=== PATIENT | female | born 1995 | race Caucasian/White ===

== ENCOUNTER 2017-12-11 14:42 | Emergency (ER) | payer BC ==
[2017-12-11 15:36] LABS: Urine Blood 1+ (NEG); Urine Glucose NEGATIVE (NEG); Urine Protein NEGATIVE (NEG)
[2017-12-11 15:42] LABS: Urine Bacteria >50 /HPF (<20); Urine Culture Reflex Order REFLEXED; Urine White Blood Cell Casts 0-5 /LPF (NONE SEEN)
[2017-12-11] MEDS ORDERED: NITROFURAN MACRO 100 MG CAP PO ONE (16:26)
--- NOTE | 2017-12-11 16:35 | RAD REPORT ---
EXAM DESCRIPTION: US - Renal Ultrasound-Complete - 12/11/2017 4:17 pm CLINICAL HISTORY: . Right flank pain COMPARISON: None. FINDINGS: The right kidney measures 11 cm with a normal echotexture. The left kidney measures 11 cm with a normal echotexture. Hydronephrosis is not seen. IMPRESSION: Unremarkable renal ultrasound.
--- NOTE | 2017-12-11 16:37 | ER ---
Nurse's Notes [facility] Name: Cheli Lovell Age: 22 yrs Sex: Female : 1995 Arrival Date: 12/11/2017 Time: 14:45 Bed 14 Private MD: Diagnosis: Urinary tract infection, site not specified Presentation: 12/11 14:56 Presenting complaint: Patient states: UTI for 4 days, progressed to "kidney pain". aj Transition of care: patient was not received from another setting of care. Onset of symptoms was December 07, 2017. Care prior to arrival: None. 14:56 Method Of Arrival: Ambulatory aj 14:56 Acuity: DAVID 3 aj Triage Assessment: 14:57 General: Appears in no apparent distress. comfortable, Behavior is calm, cooperative, aj appropriate for age. Pain: Complains of pain in low back area and mid back area. Neuro: Level of Consciousness is awake, alert, obeys commands, Oriented to person, place, time, situation. Respiratory: Airway is patent Respiratory effort is even, unlabored, Respiratory pattern is regular, symmetrical. Derm: Skin is intact, is healthy with good turgor, Skin is pink, warm \\T\\ dry. normal. 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 - Social history:: Smoking status: Patient/guardian denies using tobacco. Screenin:20 Abuse screen: Denies threats or abuse. Denies injuries from another. Nutritional sv screening: No deficits noted. Tuberculosis screening: No symptoms or risk factors identified. Fall Risk None identified. Assessment: 15:20 General: Appears in no apparent distress. uncomfortable, well developed, Behavior is sv calm, cooperative, appropriate for age. Pain: Complains of pain in mid back area and low back area Pain began 4 days ago. Neuro: Level of Consciousness is awake, alert, obeys commands, Oriented to person, place, time, situation, Moves all extremities. Full function Gait is steady, Speech is normal. Respiratory: Respiratory effort is even, unlabored, Respiratory pattern is regular, symmetrical. : Reports urinary frequency. Derm: Skin is pink, warm \\T\\ dry. Musculoskeletal: No signs and/or symptoms reported regarding the musculoskeletal system. 17:00 Reassessment: Patient appears in no apparent distress at this time. No changes from sv previously documented assessment. Patient and/or family updated on plan of care and expected duration. Pain level reassessed. Patient is alert, oriented x 3, equal unlabored respirations, skin warm/dry/pink. Vital Signs: 14:57 BP 143 / 94; Pulse 103; Resp 20; Temp 99.0; Pulse Ox 100% on R/A; Weight 74.84 kg; aj Height 5 ft. 2 in. (157.48 cm); 14:57 Body Mass Index 30.18 (74.84 kg, 157.48 cm) aj ED Course: 14:45 Patient arrived in ED. as 14:57 Triage completed. aj 14:57 Arm band placed on left wrist. Patient placed in waiting room, Patient notified of wait aj time. 15:14 Vivien Garg FNP-C is PHCP. kb 15:14 Iam Barrera MD is Attending Physician. kb 15:15 Deedee Arambula, JEREMIAH is Primary Nurse. sv 15:20 Patient has correct armband on for positive identification. Bed in low position. Call sv light in reach. Adult w/ patient. Door closed. Head of bed elevated. 15:23 Urine collected: clean catch specimen, clear. sv 16:03 Patient taken to ultrasound. via wheelchair. sv 16:12 Ultrasound completed. Patient tolerated well. cy 16:18 US Rp Exam Complete In Process Unspecified. EDMS 17:00 No provider procedures requiring assistance completed. Patient did not have IV access sv during this emergency room visit. Administered Medications: 16:30 Drug: Macrobid 100 mg Route: PO; sv 17:00 Follow up: Response: No adverse reaction sv Outcome: 16:36 Discharge ordered by . kb 17:00 Discharged to home ambulatory, with family. sv 17:00 Condition: stable 17:00 Discharge instructions given to patient, Instructed on discharge instructions, follow up and referral plans. medication usage, Demonstrated understanding of instructions, follow-up care, medications, Prescriptions given X 1. 17:04 Patient left the ED. sv Addendum: 12/14/2017 07:33 Addendum: Culture Results: Positive urine culture. No further action required. Bacteria s s sensitive to prescribed antibiotic. Signatures: Dispatcher [employer] Vivien Moreno, BC ACOSTA-Deedee Hameed RN RN sv Myers, Amanda, RN RN aj Martinez, Amelia as Smirch, Shelby, RN RN ss Yong, Chheannith cy Corrections: (The following items were deleted from the chart) 12/11 16:03 16:03 Patient moved back from radiology. brown dasilva
--- NOTE | 2017-12-11 16:37 | EDPHYS ---
Physician Documentation [facility] Name: Cheli Lovell Age: 22 yrs Sex: Female : 1995 Arrival Date: 12/11/2017 Time: 14:45 Bed 14 Private MD: ED Physician Iam Barrera HPI: 12/11 15:26 This 22 yrs old Female presents to ER via Ambulatory with complaints of kb Urinary Problem, Flank Pain. 15:27 The patient presents with flank pain, on the right, urinary symptoms, frequency, kb urgency. Onset: The symptoms/episode began/occurred 4 day(s) ago, and became worse today. Modifying factors: The symptoms are alleviated by nothing, the symptoms are aggravated by pressure. Associated signs and symptoms: Pertinent positives: urinary frequency. Severity of symptoms: At their worst the symptoms were moderate, in the emergency department the symptoms are unchanged. The patient has experienced similar episodes in the past, a few times. The patient has not recently seen a physician. MEDIA MONITOR: 14:57 LMP 11/17/2017 aj Historical: - Allergies: 14:57 ACETAMINOPHEN; aj 14:57 Codeine; aj - Home Meds: 14:57 None [Active]; aj - PMHx: 14:57 None; aj - PSHx: 14:57 wisdom teeth; aj - Immunization history:: Adult Immunizations up to date. - Social history:: Smoking status: Patient/guardian denies using tobacco. ROS: 15:25 Constitutional: Negative for fever, chills, and weight loss, Cardiovascular: Negative kb for chest pain, palpitations, and edema, Respiratory: Negative for shortness of breath, cough, wheezing, and pleuritic chest pain, Abdomen/GI: Negative for abdominal pain, nausea, vomiting, diarrhea, and constipation, MS/Extremity: Negative for injury and deformity, Skin: Negative for injury, rash, and discoloration, Neuro: Negative for headache, weakness, numbness, tingling, and seizure. 15:25 : Positive for urinary symptoms, flank pain, urinary frequency. Exam: 15:25 Constitutional: This is a well developed, well nourished patient who is awake, alert, kb and in no acute distress. Head/Face: Normocephalic, atraumatic. Chest/axilla: Normal chest wall appearance and motion. Nontender with no deformity. No lesions are appreciated. Cardiovascular: Regular rate and rhythm with a normal S1 and S2. No gallops, murmurs, or rubs. Normal PMI, no JVD. No pulse deficits. Respiratory: Lungs have equal breath sounds bilaterally, clear to auscultation and percussion. No rales, rhonchi or wheezes noted. No increased work of breathing, no retractions or nasal flaring. Abdomen/GI: Soft, non-tender, with normal bowel sounds. No distension or tympany. No guarding or rebound. No evidence of tenderness throughout. Skin: Warm, dry with normal turgor. Normal color with no rashes, no lesions, and no evidence of cellulitis. MS/ Extremity: Pulses equal, no cyanosis. Neurovascular intact. Full, normal range of motion. Neuro: Awake and alert, GCS 15, oriented to person, place, time, and situation. Cranial nerves II-XII grossly intact. Motor strength 5/5 in all extremities. Sensory grossly intact. Cerebellar exam normal. Normal gait. 15:25 Back: CVA tenderness, that is mild, that is moderate, is noted on the right. Vital Signs: 14:57 BP 143 / 94; Pulse 103; Resp 20; Temp 99.0; Pulse Ox 100% on R/A; Weight 74.84 kg; aj Height 5 ft. 2 in. (157.48 cm); 14:57 Body Mass Index 30.18 (74.84 kg, 157.48 cm) aj MDM: 15:14 Patient medically screened. 15:25 Data reviewed: vital signs, nurses notes. Data interpreted: Pulse oximetry: on room air kb is 100 %. Interpretation: normal. 16:21 Counseling: I had a detailed discussion with the patient and/or guardian regarding: the kb historical points, exam findings, and any diagnostic results supporting the discharge/admit diagnosis, lab results, radiology results, the need for outpatient follow up, a family practitioner, to return to the emergency department if symptoms worsen or persist or if there are any questions or concerns that arise at home. 12/11 15:16 Order name: Urine Microscopic Only; Complete Time: 15:46 kb 12/11 15:33 Order name: Urine Dipstick--Ancillary (enter results) mw2 12/11 15:25 Order name: US Rp Exam Complete; Complete Time: 16:36 kb 12/11 15:33 Order name: Urine --Ancillary (enter results); Complete Time: 15:46 mw2 12/11 15:43 Order name: Urine Culture [facility] 12/11 15:16 Order name: Urine Test (obtain specimen); Complete Time: 15:23 kb 12/11 15:16 Order name: Urine Dipstick-Ancillary (obtain specimen); Complete Time: 15:23 kb Administered Medications: 16:30 Drug: Macrobid 100 mg Route: PO; sv 17:00 Follow up: Response: No adverse reaction sv Disposition: 12/12 08:09 Co-signature as Attending Physician, Iam Barrera MD I agree with the assessment and wa plan of care. Disposition: 12/11/17 16:36 Discharged to Home. Impression: Urinary tract infection, site not specified. - Condition is Stable. - Discharge Instructions: Urinary Tract Infection, [id number]. - Prescriptions for Macrobid 100 mg Oral Capsule - take 1 capsule by ORAL route every 12 hours for 7 days; 14 capsule. - Medication Reconciliation Form, Thank You Letter, Antibiotic Education, Prescription Opioid Use, Work release form form. - Follow up: Emergency Department; When: As needed; Reason: Worsening of condition. Follow up: Private Physician; When: 2 - 3 days; Reason: Recheck today's complaints, Continuance of care, Re-evaluation by your physician. Signatures: Dispatcher [employer] [facility] Vivien Garg, BC ACOSTA-Deedee Haemed RN RN sv Myers, Amanda, RN RN aj Appiah, William, MD MD wa
== END 2017-12-11 17:04 | disposition home or self-care (01) ==
LOC: ER 14:42
DX: N39.0 Urinary tract infection, site not specified (principal); Z88.5 Allergy status to narcotic agent; Z88.6 Allergy status to analgesic agent
CPT/HCPCS: 76770; 81003; 81015; 81025; 87077; 87086; 87088; 87186; 99284

== ENCOUNTER 2020-09-18 07:04 | Emergency (ER) | payer BC ==
--- OUTSIDE RECORDS SUMMARY | 2020-09-18 07:06 | XMS REPORT | Continuity of Care Document ---
:1995 Author Organization [facility] t Address [address] [place] [address] Care Team Providers Name Role Phone Unavailable Unavailable Unavailable Payers Payer Name Policy Type Policy Number Effective Date Expiration Date S ource Problems This patient has no known problems. Allergies, Adverse Reactions, Alerts Allergy Allergy Status Severity Reaction(s) Onset Inactive Treating Comm ents Source Name Type Date Date Clinician codeine DA Active [place] 2017-09 [facility] 09-28 [facility] [place] No Known DA Active [place] 2017-09 [facility] 09[facility] Medications This patient has no known medications. Procedures This patient has no known procedures. Results Test Description Test Time Test Comments Results Result [facility] roberto Lopez [facility] 2018-08-12 TRIMESTER 08:00:00 --------RUN DATE: 08/12/18 [facility] PAGE 1 RUN TIME: 1610 Specimen Inquiry RUN USER: INTERFACE --------PATIENT: JAY SLIVA LOC: DENIS U #: [id number] AGE/SX: ROOM: [facility] RE08/07/18REG DR: Natasha Ricks MD : [birth year] BED: A DIS: STATUS: ADM IN TLOC: -------- SPEC #: [id number] RECD: 08/10/18 STATUS: QUAN RE #: [id number] JEFF: 08/10/18- [facility] DR: Natasha Ricks MD ENTERED: 08/10/18 SP TYPE: PLACIII OTHR DR: Norma Marc MD ORDERED: LEVEL V SURGICA CODES: [id number] - PLACENTA, NOS COPIES TO: Norma Marc MD [address] [facility] [place] [address] Natasha Ricks MD [address] [place] [address] PROCEDURES: LEVEL V SURGICA (Incomplete) TISSUES: PLACENTA, NOS - PLACENTA CLINICAL HISTORY 22 year old, 37.2 weeks, [id number], section, pre-eclampsia, elevated maternal temperature (kr) FINAL DIAGNOSIS Placenta, 37.2 weeks gestational age, section: - third trimester placenta, 503 gm (75th percentile) with uneven villous maturation, decidual fibrinoid vasculopathy, acute subchorionitis (stage 1, grade 1), and small intervillous thrombus - trivascular umbilical cord and membranes free of inflammation Tissue code 1 CPT code(s): 94417 [facility]/rir GROSS DESCRIPTION The specimen was received in a container, labeled with the patient's name, unit number and designated "placenta". The following attributes are observed: Cord insertion: 3 cm from margin CONTINUED ON NEXT PAGE --------RUN DATE: 08/12/18 [facility] PAGE 2 RUN TIME: 1610 Specimen Inquiry RUN USER: INTERFACE --------SPEC #: [id number] PATIENT: JAY SILVA #[id number] (Continued) GROSS DESCRIPTION (Continued) Cord length: 17 cm Number of vessels: 3 Cord color: Blue-benitez Other cord findings: None surface findings: Steel blue, wrinkled, glistening Vasculature: Displays unremarkable blood vasculature Membranes rupture site: 0 cm to margin Membrane color: Benitez Other membrane findings: Slightly thickened and opaque The trimmed placental weight: 503 gm Disk measurement: 19 x 16 x 3.7 cm in greatest dimension Accessory lobes: None Maternal surface: Lobulated and intact Parenchyma: Red, beefy, and spongy Parenchyma lesions: The parenchyma contains central red firm lesion measuring 1.5 cm and involving less than 5% of the total placental tissue (in D) Cassettes: A through D hz/kr 08/05/18 @ 1206 MICROSCOPIC DESCRIPTION The membranes and trivascular umbilical cord are unremarkable. The placenta has a third trimester morphology and acute subchorionitis. There is fibrinoid necrosis in vessel calderon within the decidua and small villi with increased syncytial knots. Focal areas of increased villous size are also present. An intervillous thrombus is seen. michi/aly Signed Linda Castro MD 08/12/18 0800 -------- END OF REPORT
[2020-09-18] MEDS ORDERED: predniSONE 20 MG TAB ONE (07:52)
[2020-09-18 08:40] LABS: SARS-COV-2 RT PCR NEGATIVE (NEGATIVE)
--- NOTE | 2020-09-18 09:16 | ER ---
Nurse's Notes [facility] Name: Cheli Lovell Age: 25 yrs Sex: Female : 1995 Arrival Date: 09/18/2020 Time: 07:09 Bed 5 Private MD: Diagnosis: Streptococcal tonsillitis;Fever, unspecified Presentation: 09/18 07:16 Chief complaint: Patient states: woke up with sore throat and swollen tonsils, felt iw like she got a hit by a truck. Coronavirus screen: sore throat. Ebola Screen: Patient negative for fever greater than or equal to 101.5 degrees Fahrenheit, and additional compatible Ebola Virus Disease symptoms Patient denies exposure to infectious person. Patient denies travel to an Ebola-affected area in the 21 days before illness onset. No symptoms or risks identified at this time. Initial Sepsis Screen: Does the patient meet any 2 criteria? No. Patient's initial sepsis screen is negative. Does the patient have a suspected source of infection? No. Patient's initial sepsis screen is negative. Risk Assessment: Do you want to hurt yourself or someone else? Patient reports no desire to harm self or others. Onset of symptoms was September 18, 2020. 07:16 Method Of Arrival: Ambulatory iw 07:16 Acuity: DAVID 4 iw Historical: - Allergies: 07:18 Tylenol-Codeine #3; iw - Home Meds: 07:18 Zoloft Oral [Active]; iw - PMHx: 07:18 Anxiety; iw - PSHx: 07:18 wisdom teeth; iw - Immunization history:: Adult Immunizations. - Social history:: Smoking status: Patient/guardian denies using tobacco, the patient reports quitting approximately 6 years ago. Screenin:41 Abuse screen: Denies threats or abuse. Denies injuries from another. Nutritional bp screening: No deficits noted. Tuberculosis screening: No symptoms or risk factors identified. Fall Risk None identified. Assessment: 07:35 General: Appears comfortable, Behavior is calm, cooperative. Pain: Complains of pain in aa5 whole body Pain currently is 6 out of 10 on a pain scale. Quality of pain is described as aching. Neuro: Level of Consciousness is awake, alert, obeys commands, Oriented to person, place, time, situation. Cardiovascular: Heart tones S1 S2 present Rhythm is regular. Respiratory: Airway is patent Respiratory effort is even, unlabored, Respiratory pattern is regular, symmetrical, Breath sounds are clear bilaterally. GI: No signs and/or symptoms were reported involving the gastrointestinal system. : No signs and/or symptoms were reported regarding the genitourinary system. EENT: Throat is reddened has enlarged tonsils bilaterally. Derm: Skin is pink, warm \T\ dry. Musculoskeletal: Range of motion: intact in all extremities. 09:28 Reassessment: Patient is alert, oriented x 3, equal unlabored respirations, skin aa5 warm/dry/pink. Vital Signs: 07:16 BP 145 / 110; Pulse 118; Resp 18; Temp 98.8; Pulse Ox 100% on R/A; Weight 83.91 kg; iw Height 5 ft. 2 in. (157.48 cm); 08:16 BP 134 / 90; Pulse 95; Resp 18; Temp 98.5(O); Pulse Ox 100% ; mh5 07:16 Body Mass Index 33.84 (83.91 kg, 157.48 cm) ED Course: 07:09 Patient arrived in ED. ag3 07:17 Triage completed. iw 07:19 Beth Hwang, RN is Primary Nurse. aa5 07:19 Ernie Reyna MD is Attending Physician. mh7 07:40 COVID swab sent to lab. Flu and/or RSV swab sent to lab. aa5 07:41 Patient has correct armband on for positive identification. Bed in low position. Call bp light in reach. Side rails up X2. 08:19 Attending Physician role handed off by Ernie Reyna MD teja 08:19 Ramón Almeida MD is Attending Physician. teja 09:28 No provider procedures requiring assistance completed. Patient did not have IV access aa5 during this emergency room visit. Administered Medications: 07:41 Drug: predniSONE 60 mg Route: PO; bp 09:29 Follow up: Response: No adverse reaction aa5 09:22 Drug: Augmentin 875 mg Route: PO; aa5 09:29 Follow up: Response: Medication administered at discharge. aa5 Outcome: 09:15 Discharge ordered by . teja 09:28 Discharged to home ambulatory. aa5 09:28 Condition: stable 09:28 Discharge instructions given to patient, Instructed on discharge instructions, follow up and referral plans. medication usage, Demonstrated understanding of instructions, follow-up care, medications, Prescriptions given X 1. 09:30 Patient left the ED. aa5 Signatures: Ramón Almeida MD MD cha Williams, Irene, RN RN iw Calderon, Audri, RN RN aa5 Chloe Flower Brian, RN RN bp Gomez, Alice ag3 Ernie Reyna MD MD 7
--- NOTE | 2020-09-18 09:16 | EDPHYS ---
Physician Documentation [facility] Name: Cheli Lovell Age: 25 yrs Sex: Female : 1995 Arrival Date: 09/18/2020 Time: 07:09 Bed 5 Private MD: ED Physician Ramón Almeida HPI: 09/18 07:28 This 25 yrs old Female presents to ER via Ambulatory with complaints of Sore mh7 Throat. 07:28 The patient presents with sore throat. The patient describes throat pain as constant. mh7 Onset: The symptoms/episode began/occurred yesterday. Severity of symptoms: At their worst the symptoms were moderate, last night, in the emergency department the symptoms have improved, moderately. Modifying factors: The symptoms are alleviated by over the counter medications, NSAIDs, the symptoms are aggravated by swallowing, Patient's oral intake status: limited fluid intake, unaware of sick contact. Associated signs and symptoms: Pertinent positives: Sore throat Pertinent negatives chest pain, chills, cough, diarrhea, dysphagia, earache, fever, flu-like symptoms, headache, nausea, rhinorrhea, shortness of breath, vomiting. The patient has experienced similar episodes in the past, several times. Historical: - Allergies: 07:18 Tylenol-Codeine #3; iw - Home Meds: 07:18 Zoloft Oral [Active]; iw - PMHx: 07:18 Anxiety; iw - PSHx: 07:18 wisdom teeth; iw - Immunization history:: Adult Immunizations. - Social history:: Smoking status: Patient/guardian denies using tobacco, the patient reports quitting approximately 6 years ago. ROS: 07:28 Constitutional: Negative for fever, chills, and weight loss, Eyes: Negative for injury, mh7 pain, redness, and discharge, Neck: Negative for injury, pain, and swelling. 07:28 Cardiovascular: Negative for chest pain, palpitations, and edema, Respiratory: Negative for shortness of breath, cough, wheezing, and pleuritic chest pain, Abdomen/GI: Negative for abdominal pain, nausea, vomiting, diarrhea, and constipation, Back: Negative for injury and pain, : Negative for injury, bleeding, discharge, and swelling, MS/Extremity: Negative for injury and deformity, Skin: Negative for injury, rash, and discoloration, Neuro: Negative for headache, weakness, numbness, tingling, and seizure, Psych: Negative for depression, anxiety, suicide ideation, homicidal ideation, and hallucinations, Allergy/Immunology: Negative for hives, rash, and allergies, Endocrine: Negative for neck swelling, polydipsia, polyuria, polyphagia, and marked weight changes, Hematologic/Lymphatic: Negative for swollen nodes, abnormal bleeding, and unusual bruising. Exam: 07:28 Constitutional: This is a well developed, well nourished patient who is awake, alert, mh7 and in no acute distress. Head/Face: Normocephalic, atraumatic. Eyes: Pupils equal round and reactive to light, extra-ocular motions intact. Lids and lashes normal. Conjunctiva and sclera are non-icteric and not injected. Cornea within normal limits. Periorbital areas with no swelling, redness, or edema. 07:28 Neck: Trachea midline, no thyromegaly or masses palpated, and no cervical lymphadenopathy. Supple, full range of motion without nuchal rigidity, or vertebral point tenderness. No Meningismus. Chest/axilla: Normal chest wall appearance and motion. Nontender with no deformity. No lesions are appreciated. 07:28 Respiratory: Lungs have equal breath sounds bilaterally, clear to auscultation and percussion. No rales, rhonchi or wheezes noted. No increased work of breathing, no retractions or nasal flaring. Abdomen/GI: Soft, non-tender, with normal bowel sounds. No distension or tympany. No guarding or rebound. No evidence of tenderness throughout. Back: No spinal tenderness. No costovertebral tenderness. Full range of motion. Skin: Warm, dry with normal turgor. Normal color with no rashes, no lesions, and no evidence of cellulitis. MS/ Extremity: Pulses equal, no cyanosis. Neurovascular intact. Full, normal range of motion. Neuro: Awake and alert, GCS 15, oriented to person, place, time, and situation. Cranial nerves II-XII grossly intact. Motor strength 5/5 in all extremities. Sensory grossly intact. Cerebellar exam normal. Normal gait. Psych: Awake, alert, with orientation to person, place and time. Behavior, mood, and affect are within normal limits. 07:28 ENT: External ear(s): are unremarkable, Ear canal(s): are normal, clear, TM's: are normal, Nose: is normal, Mouth: is normal, Posterior pharynx: Airway: normal, Tonsils: bilaterally enlarged, with erythema, Uvula: normal, swelling, is not appreciated, erythema, that is moderate, exudate, is not appreciated, peritonsillar mass, is not appreciated, pooling of secretions, is not appreciated, Dental exam: normal, Voice: is normal, Breath odor: is normal. 07:28 Cardiovascular: Rate: tachycardic, Rhythm: regular, Pulses: no pulse deficits are appreciated, Heart sounds: normal, normal S1and S2, Edema: is not appreciated, JVD: is not appreciated. Vital Signs: 07:16 BP 145 / 110; Pulse 118; Resp 18; Temp 98.8; Pulse Ox 100% on R/A; Weight 83.91 kg; iw Height 5 ft. 2 in. (157.48 cm); 08:16 BP 134 / 90; Pulse 95; Resp 18; Temp 98.5(O); Pulse Ox 100% ; 5 07:16 Body Mass Index 33.84 (83.91 kg, 157.48 cm) iw MDM: 08:19 Patient medically screened. [facility] 09/18 07:27 Order name: Rapid Strep; Complete Time: 09:13 [facility] 09/18 08:40 Order name: COVID-19/FLU A+B; Complete Time: 09:13 EDMS Administered Medications: 07:41 Drug: predniSONE 60 mg Route: PO; bp 09:29 Follow up: Response: No adverse reaction aa5 09:22 Drug: Augmentin 875 mg Route: PO; aa5 09:29 Follow up: Response: Medication administered at discharge. aa5 Disposition: 09/18/20 09:15 Discharged to Home. Impression: Streptococcal tonsillitis, Fever, unspecified. - Condition is Stable. - Discharge Instructions: Strep Throat, Tonsillitis, Tonsillitis, [id number], Strep Throat, [id number]. - Prescriptions for Augmentin 875- 125 mg Oral Tablet - take 1 tablet by ORAL route every 12 hours for 10 days; 20 tablet. - Medication Reconciliation Form, Thank You Letter, Antibiotic Education, Prescription Opioid Use, Work release form form. - Follow up: Private Physician; When: 2 - 3 days; Reason: Recheck today's complaints, Continuance of care, Re-evaluation by your physician. - Problem is new. - Symptoms have improved. Signatures: Dispatcher [employer] [facility] Ramón Almeida MD MD cha Williams, Irene, JEREMIAH DANIELS iw Beth Hwang RN RN aa5 Giovanni Cervantes RN RN bp Holmes, Maurice, MD MD mh7 Corrections: (The following items were deleted from the chart) 07:57 07:28 CORONAVIRUS+MR.LAB.BRZ ordered. [facility] 09:30 09:15 09/18/2020 09:15 Discharged to Home. Impression: Streptococcal tonsillitis; aa5 Fever, unspecified. Condition is Stable. Forms are Medication Reconciliation Form, Thank You Letter, Antibiotic Education, Prescription Opioid Use. Follow up: Private Physician; When: 2 - 3 days; Reason: Recheck today's complaints, Continuance of care, Re-evaluation by your physician. Problem is new. Symptoms have improved. teja
[2020-09-18 09:33] VITALS: O2SAT 100
[2020-09-18 09:35] VITALS: BP 134/90; TEMP 98.5
[2020-09-18] MEDS ORDERED: AMOX/K CLAV 875 MG TAB ONE (09:37)
== END 2020-09-18 09:30 | disposition home or self-care (01) ==
LOC: ER 07:04
DX: J03.00 Acute streptococcal tonsillitis, unspecified (principal); Z20.822 Contact with and (suspected) exposure to COVID-19; Z87.891 Personal history of nicotine dependence; F41.9 Anxiety disorder, unspecified
CPT/HCPCS: 87081; 0240U; 99283; J7512